=== PATIENT | male | born 1985 | race Caucasian/White ===

== ENCOUNTER 2024-07-09 20:09 | Emergency (ER) | payer SELFPAY ==
[2024-07-09 20:37] LABS: BASOPHILS ABSOLUTE AUTO 0.04 K/uL (0.00-0.20); BASOPHILS PERCENT AUTO 0.4 % (0.0-1.0); EOSINOPHILS ABSOLUTE AUTO 0.32 K/uL (0.00-0.45); EOSINOPHILS PERCENT AUTO 3.2 % (0.0-6.0); HEMATOCRIT 41.5 % (42.0-52.0); HEMOGLOBIN 14.8 g/dL (14.0-18.0); IMMATURE GRAN ABSOLUTE AUTO 0.02 K/uL (0.00-0.05); IMMATURE GRAN PERCENT AUTO 0.2 % (0.0-0.4); LYMPHOCYTES ABSOLUTE AUTO 3.06 K/uL (1.00-4.80); LYMPHOCYTES PERCENT AUTO 30.5 % (24.0-44.0); MEAN CORPUSCULAR HEMOGLOBIN 31.2 pg (28.0-32.0); MEAN CORPUSCULAR HGB CONC 35.7 g/dL (32.0-36.0); MEAN CORPUSCULAR VOLUME 87.4 fL (83.0-99.0); MEAN PLATELET VOLUME 8.9 fL (9.4-12.4); MONOCYTES ABSOLUTE AUTO 0.65 K/uL (0.00-0.80); MONOCYTES PERCENT AUTO 6.5 % (0.0-8.0); NEUTROPHILS ABSOLUTE AUTO 5.93 K/uL (1.80-7.70); NEUTROPHILS PERCENT AUTO 59.2 % (41.0-71.0); PLATELET COUNT,PLT 233 K/uL (150-400); RED BLOOD CELL COUNT 4.75 M/uL (4.52-5.90); WHITE BLOOD CELL COUNT,WBC 10.02 K/uL (3.9-11.3)
[2024-07-09 21:01] LABS: A/G RATIO 1.2 (0.9-1.6); BILIRUBIN TOTAL 0.3 mg/dL (0.2-1.0); CALCIUM 8.8 mg/dL (8.5-10.1); CARBON DIOXIDE,CO2 26.8 mmol/L (21.0-32.0); EST CRCL DRUG DOSING (CG) 81.4 mL/min; POTASSIUM,K 3.8 mmol/L (3.5-5.1); PROTEIN TOTAL,TP 7.4 g/dL (6.4-8.2)
== END 2024-07-09 23:05 | disposition home or self-care (01) ==
LOC: MW.ED 20:09
DX: S20.211A Contusion of right front wall of thorax, initial encounter (principal); V49.40XA Driver injured in collision with unspecified motor vehicles in traffic accident, initial encounter
CPT/HCPCS: 36415; 71046; 71046-26; 80053; 84484; 85025; 93005; 99284